=== PATIENT | male | born 1960 | race Two or more races ===

== ENCOUNTER 2018-02-25 20:50 | Observation (INO) | payer OTHER ==
[2018-02-25] MEDS ORDERED: ASPIRIN 325 MG TABLET PO ONE (21:58)
[2018-02-25 22:14] LABS: ABSOLUTE LYMPHOCYTES (AUTO) 1.7 10^3/uL (0.5-4.7); ABSOLUTE MONOCYTES (AUTO) 0.6 10^3/uL (0.1-1.4); ABSOLUTE NEUT (AUTO) 3.8 10^3/uL (1.7-8.2); BASOPHILS % (AUTO) 0.4 % (0-2); EOSINOPHILS % (AUTO) 0.8 % (0-6); HEMATOCRIT 41.3 % (37.9-51.0); HEMOGLOBIN 14.1 g/dL (13.5-17.0); LYMPHOCYTES % (AUTO) 27.6 % (13-45); MEAN CORPUSCULAR HEMOGLOBIN 31.2 pg (27.0-33.4); MEAN CORPUSCULAR HGB CONC 34.3 g/dL (32.0-36.0); MEAN CORPUSCULAR VOLUME 91 fl (80-97); MONOCYTES % (AUTO) 9.4 % (3-13); PLATELET COUNT 226 10^3/uL (150-450); RED BLOOD COUNT 4.54 10^6/uL (4.35-5.55); RED CELL DISTRIBUTION WIDTH 14.9 % (11.5-14.0); SEGMENTED NEUTROPHILS % (AUTO) 61.8 % (42-78); TOTAL CELLS COUNTED % (AUTO) 100 %; WHITE BLOOD COUNT 6.1 10^3/uL (4.0-10.5)
[2018-02-25] MEDS: NITROGLYCERIN 0.4 MG/TAB 25 TAB/BOTTLE SL PRN ×2 (22:23→22:42)
[2018-02-25 22:27] LABS: PROTHROMBIN TIME 12.6 SEC (11.4-15.4)
[2018-02-25 22:28] LABS: ALANINE AMINOTRANSFERASE 28 U/L (21-72); ALBUMIN 3.8 g/dL (3.5-5.0); ALKALINE PHOSPHATASE 81 U/L (38-126); ANION GAP 8 (5-19); ASPARTATE AMINO TRANSFERASE 27 U/L (17-59); BILIRUBIN,DIRECT 0.2 mg/dL (0.0-0.4); BILIRUBIN,TOTAL 0.4 mg/dL (0.2-1.3); BLOOD UREA NITROGEN 16 mg/dL (7-20); CARBON DIOXIDE 26 mmol/L (22-30); CHLORIDE 106 mmol/L (98-107); CREATINE KINASE 270 U/L (55-170); GLUCOSE 98 mg/dL (75-110); SODIUM 140.1 mmol/L (137-145); TOTAL PROTEIN 6.3 g/dL (6.3-8.2)
[2018-02-25 22:39] LABS: CREATINE KINASE MB 1.39 ng/mL (<4.55)
[2018-02-25 22:42] LABS: TROPONIN I < 0.012 ng/mL
[2018-02-25] MEDS ORDERED: FENTANYL CITRATE INJ/PF 100 MCG/2 ML AMPUL IV ONE (23:56)
--- NOTE | 2018-02-26 02:20 | RADIOLOGY REPORT (SQ) ---
EXAM DESCRIPTION: XR CHEST 1 VIEW COMPLETED DATE/TME: 02/25/2018 21:31 CLINICAL HISTORY: chest pain COMPARISON: None. FINDINGS: Single frontal view of the chest. Tortuosity of the thoracic aorta. Prior median sternotomy. Fixation hardware of the cervical spine. Heart is not enlarged. No consolidation, pneumothorax, or pleural effusion. No acute osseous abnormalities. Upper abdominal soft tissues are unremarkable. IMPRESSION: 1. No acute pulmonary process identified.
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
[2018-02-26] MEDS ORDERED: PROMETHAZINE HCL INJ 25 MG/1 ML VIAL IV PRN (04:19)
[2018-02-26] MEDS ORDERED: MAG HYDROX/AL HYDROX/SIMETH SUSP 30 ML UDCUP PO PRN (04:19)
[2018-02-26] MEDS ORDERED: PROMETHAZINE HCL 25 MG TABLET PO PRN (04:19)
[2018-02-26] MEDS ORDERED: ACETAMINOPHEN 325 MG TABLET PO PRN (04:19)
[2018-02-26] MEDS ORDERED: NITROGLYCERIN 0.4 MG/TAB 25 TAB/BOTTLE SL PRN (04:24)
[2018-02-26] MEDS ORDERED: TRAZODONE HCL 50 MG TABLET PO ONE (04:30)
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
[2018-02-26] MEDS ORDERED: TRAZODONE HCL 50 MG TABLET ONE (06:33)
[2018-02-26] MEDS: ENOXAPARIN SODIUM INJ 40 MG/0.4 ML DISP.SYRIN SUBCUT SCH (10:57)
[2018-02-26] MEDS ORDERED: TRAZODONE HCL 50 MG TABLET PO PRN (11:07)
--- NOTE | 2018-02-26 12:38 | EKG REPORT ---
SEVERITY:- BORDERLINE ECG - SINUS RHYTHM PROBABLE LEFT ATRIAL ABNORMALITY : Confirmed by: Deloris Gore MD 26-Feb-2018 12:37:33
[2018-02-26] MEDS: AMOXICILLIN TR/POT CLAVULANATE 500-125 MG TAB PO SCH ×2 (12:57→21:15)
[2018-02-26] MEDS: LISINOPRIL 10 MG TABLET PO SCH (12:58)
[2018-02-26] MEDS: TRAMADOL HCL 50 MG TABLET PO PRN ×2 (12:58→21:14)
[2018-02-26] MEDS: NORMAL SALINE 1000 ML 1,000 ML IV PRN ×2 (12:59→21:15)
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
[2018-02-26] MEDS ORDERED: SIMVASTATIN 40 MG TABLET PO SCH (22:00)
[2018-02-27 06:11] LABS: ANION GAP 6 (5-19); BLOOD UREA NITROGEN 12 mg/dL (7-20); CALCIUM 8.8 mg/dL (8.4-10.2); CARBON DIOXIDE 26 mmol/L (22-30); CHLORIDE 109 mmol/L (98-107); CREATINE KINASE 148 U/L (55-170); GLUCOSE 91 mg/dL (75-110); POTASSIUM 4.1 mmol/L (3.6-5.0); SODIUM 141.3 mmol/L (137-145)
[2018-02-27] MEDS: NORMAL SALINE 1000 ML 1,000 ML IV PRN (06:25)
[2018-02-27] MEDS: LISINOPRIL 10 MG TABLET PO SCH (09:26)
[2018-02-27] MEDS: AMOXICILLIN TR/POT CLAVULANATE 500-125 MG TAB PO SCH (09:26)
[2018-02-27] MEDS: ENOXAPARIN SODIUM INJ 40 MG/0.4 ML DISP.SYRIN SUBCUT SCH (09:26)
[2018-02-27] MEDS ORDERED: ASPIRIN 81 MG TABLET, CHEWABLE PO SCH (10:00)
[2018-02-27] MEDS ORDERED: (PENDING PHARMACY ID) (Lisinopril [Prinivil] 20 MG) PO SCH (10:00)
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
[2018-02-27] MEDS: TRAMADOL HCL 50 MG TABLET PO PRN (15:32)
[2018-02-27 18:10] VITALS: BP 144/84
== END 2018-02-27 18:45 | disposition home or self-care (01) ==
LOC: ER 20:50 → INTOOBSV 02-26 04:08 → EH 02-26 04:08 → 3N 02-26 10:31
PROVIDERS: ADMIT Internal Medicine; ATTEND Internal Medicine
DX: K11.20 Sialoadenitis, unspecified (principal); E86.0 Dehydration; F43.10 Post-traumatic stress disorder, unspecified; I25.810 Atherosclerosis of coronary artery bypass graft(s) without angina pectoris; I10 Essential (primary) hypertension; R68.84 Jaw pain; R53.1 Weakness; G47.00 Insomnia, unspecified; G89.29 Other chronic pain; G47.33 Obstructive sleep apnea (adult) (pediatric); F17.210 Nicotine dependence, cigarettes, uncomplicated; E66.9 Obesity, unspecified; R59.0 Localized enlarged lymph nodes; R74.8 Abnormal levels of other serum enzymes; R20.2 Paresthesia of skin; Z68.32 Body mass index [BMI] 32.0-32.9, adult; I25.2 Old myocardial infarction; Z79.899 Other long term (current) drug therapy; Z98.1 Arthrodesis status; Z82.49 Family history of ischemic heart disease and other diseases of the circulatory system; Z95.1 Presence of aortocoronary bypass graft
CPT/HCPCS: 93005; 99285; 96374; 36415 ×3; 82553; 82550 ×2; 83735; 85025; 85610; 80048; 80053; 84484 ×2; 71045; 93010; 94660 ×2; G0378 ×3; J3010; J1650 ×2